=== PATIENT | female | born 1960 | race Caucasian/White ===

== ENCOUNTER → 2019-01-01 14:29 | Outpatient (CLI) | payer OTHER, SELFPAY ==
[2019-01-01 10:13] VITALS: BMI 20.7
== END ==
PROVIDERS: Referring Provider Physician Assistant; Visit Provider Physician Assistant
DX: J02.9 Acute pharyngitis, unspecified (principal)
CPT/HCPCS: 87081

== ENCOUNTER 2019-12-21 15:12 | Emergency (ER) | payer OTHER, SELFPAY ==
[2019-01-01 10:13] VITALS: BMI 20.7
[2019-12-21 15:14] VITALS: BP 161/96; PULSE 88; RESP 15; TEMP 36.8; O2SAT 95; BMI 21.6
--- NOTE | 2019-12-21 16:39 | ED.VISSUMM ---
- ER Visit Summary Date of Service: 12/21/19 Chief Complaint: Throat swelling History of Present Illness: The patient is a 59 F presenting with sensation of throat swelling. She states this started a couple of hours ago. She had new dentures placed this morning at her dentist. She wore them for approximately 6 hours and started have a sensation of swelling in her throat and tongue. No difficulty swallowing or breathing. She called her dentist and was advised to remove the dentures and come to the ED. Patient denies any itching, rash, other symptoms. Physical Examination: Vitals are stable. Patient is afebrile. Alert no acute distress. HEENT exam is unremarkable. Pharynx is normal. No pharyngeal edema. No tongue swelling. Neck is supple. Lungs are clear and equal bilaterally. Heart is regular rate and rhythm. Abdomen is soft nontender nondistended. Extremities are unremarkable. Skin is warm and dry. No rash No focal neurologic deficit. Remainder of exam is unremarkable. Emergency Department Course and Treatment: She was given IV Solu-Medrol, Benadryl. She was given Pepcid. Patient was observed in the ED for several hours. On reevaluation her symptoms have completely resolved. She has no pharyngeal edema, no tongue swelling. She is advised to follow-up with her dentist. She is advised to discontinue use of her dentures. Advised return to the ED for worsening complaints. Disposition: Discharged home Impression: Allergic reaction This note was generated with [employer] dictation software. It may contain incorrect words, spelling, and punctuation that were not noted in review of the chart prior to signing ED Disposition - Plan for ED Patient: Instructions: ED General Allergic Reactions Referrals: Care Physician,No Primary [Primary Care Provider] -
[2019-12-21] MEDS: Famotidine 20 MG Tablet PO (16:53)
[2019-12-21] MEDS: MethylPREDNISolone 125 MG/2 ML Vial IV (16:54)
[2019-12-21] MEDS: DiphenhydrAMINE 50 MG/ML Syringe 25 MG IV (16:54)
--- NOTE | 2019-12-21 18:57 | ED.DEP ---
ED Disposition - Plan for ED Patient: Instructions: ED General Allergic Reactions Referrals: Care Physician,No Primary [Primary Care Provider] -
[2019-12-21 19:12] VITALS: BP 152/60; PULSE 78; RESP 16; O2SAT 98
== END 2019-12-21 19:13 | disposition home or self-care (01) ==
LOC: ED 16:40
PROVIDERS: Emergency Provider Emergency Medicine
DX: T78.40XA Allergy, unspecified, initial encounter (principal); Z72.0 Tobacco use
CPT/HCPCS: 96374; 96375; 99283; J7050; A4216

== ENCOUNTER 2020-10-15 13:50 | Emergency (ER) | payer OTHER, SELFPAY ==
[2020-10-15 13:51] VITALS: BP 170/101; PULSE 101; RESP 18; TEMP 36.8; O2SAT 98; BMI 20.5
--- NOTE | 2020-10-15 13:58 | RAD_ITS ---
STUDY: X-RAY - RIGHT FOOT CLINICAL: Female, 60 years old. Pain and swelling of the dorsal foot TECHNIQUE: 3 view(s) of the foot. COMPARISON: None. FINDINGS: Normal talus, calcaneus, and tarsal bones. Normal visualized subtalar, talonavicular, calcaneocuboid, tarsal and tarsometatarsal articulations. Normal metatarsi. There is degenerative arthrosis of the metatarsophalangeal joint of the hallux . Normal tibial and fibular sesamoid bones. Normal interphalangeal joint of the great toe. Normal phalanges of the great toe. Normal second through fifth metatarsophalangeal joints. Normal interphalangeal joints and phalanges of the lesser toes. The soft tissue structures are unremarkable. RAD/Foot min 3 Views IMPRESSION: No fracture or malalignment. Electronically Signed: Aquiles Rich MD ([facility]) at 14:24 EST , Service support ,
--- NOTE | 2020-10-15 13:58 | ED.VIS.GEN ---
History of Present Illness Chief Complaint: Lower Extremity Injury Informant: Patient Narrative: 60-year-old female with no reported past medical history presenting with right foot pain. She states is on the dorsal surface of the right foot at the base of the first great toe. She states this is where she struck her foot last night while walking. She states she walked into the staircase. She is ambulatory on scene and in the ED. She does have antalgic gait. She has no numbness or tingling. No significant swelling or deformity. Past Medical History - Allergies and Home Meds Allergies/Adverse Reactions: Allergies bee venom protein (honey bee) Allergy (Verified 10/15/20 13:54) Unknown Penicillins Allergy (Verified 10/15/20 13:54) Unknown Primary Care Physician: Care Physician,No Primary [Primary Care Provider] - Past Medical History: - - Patient denies medical problems. Surgical History: noncontributory Lives: Spouse/ Significant Other Smoking Status: Current every day smoker Alcohol: None Drugs: None Review of Systems General: Denies: Chills, Fever, Sweats Eyes: Denies: Visual changes - bilaterally, Diplopia ENT: Denies: Rhinorrhea, Sore throat Cardiovascular: Denies: Chest pain, Palpitations Respiratory: Denies: Dyspnea, Cough, Dyspnea on exertion Gastrointestinal: Denies: Abdominal pain, Nausea, Vomiting, Diarrhea, Melena, Hematochezia Genitourinary: Denies: Dysuria, Hematuria, Frequency Musculoskeletal: Reports: Extremity Pain - Pain to right foot at base of great toe. Denies: Neck pain, Back pain Skin: Denies: Rash, Abscess Neurological: Denies: Headache, Weakness Psych: Denies: Depression, Anxiety Physical Exam Vital Signs/Narrative: Vital Signs Temp Pulse Resp BP Pulse Ox 10/15/20 13:51 98.2 F 101 H 18 170/101 H 98 Inital Vital Signs reviewed: Yes General: Well nourished, No Acute Distress Head: Normocephalic, Atraumatic Eyes: Perrl, EOMI ENT: Moist mucous membranes, No rhinorrhea Cardiovascular: Regular rate, Regular rhythm Respiratory: No distress, CTA bilaterally Extremities: - - Tenderness to palpation at the base of the right great toe and to some degree the second toe. There is no obvious deformity. Right foot is neurovascular intact brisk cap refill to all 5 toes.. Negative for: Calf Tenderness Skin: Normal color, No rash Neurological: Alert, Oriented x3 Psychological: Normal affect, Normal Mood Diagnostic/Tx/Re-eval - Medical Decision Making 10-year-old female presenting with right foot pain. On examination there is no deformity ENT is neurovascular intact. Patient had x-ray 3 views of the right foot which showed no acute fracture or subluxation as interpreted by myself. Patient was given oxycodone in the ED. Given that she has no fracture I do not believe she needs opioids for home. I will start her on Naprosyn. She is instructed on icing and elevation. She states he already has crutches. Patient stable for discharge at this time. Impression: 1. Right foot contusion ED Disposition - Plan for ED Patient: Disposition: Home or Assisted Living Instructions: ED Contusion, Lower Extremity Prescriptions: Naproxen [Naprosyn] 500 mg PO BID PRN #20 tab Prescription Printed Referrals: Care Physician,No Primary [Primary Care Provider] - Will Reyez MD [NON-STAFF] -
[2020-10-15] MEDS: oxyCODONE 5 MG Tablet PO (14:02)
[2020-10-15 14:54] VITALS: RESP 16
== END 2020-10-15 15:10 | disposition home or self-care (01) ==
PROVIDERS: Emergency Provider Student in an Organized Health Care Education/Training Program
DX: S90.31XA Contusion of right foot, initial encounter (principal); F17.200 Nicotine dependence, unspecified, uncomplicated; W22.09XA Striking against other stationary object, initial encounter; Y93.01 Activity, walking, marching and hiking; Y92.009 Unspecified place in unspecified non-institutional (private) residence as the place of occurrence of the external cause; Y99.8 Other external cause status
CPT/HCPCS: 73630; 99282

== ENCOUNTER → 2022-01-05 | Outpatient (CLI) | payer MEDICAID, SELFPAY ==
[2022-01-05 15:55] LABS: Absolute Lymphocyte Count 2.03 X10^3/uL (0.83-4.51); Absolute Neutrophil Count 6.4 X10^3/uL (2.0-7.7); Basophil# 0.04 X10^3/uL; Basophil% 0.4 % (0-1); Eosinophil# 0.13 X10^3/uL; Eosinophils% 1.4 % (0-5); Hematocrit 41.8 % (37-47); Hemoglobin 14.4 g/dL (12.0-15.0); Lymphocyte # 2.03 X10^3/ul (0.83-4.51); Lymphocyte % 21.5 % (19-41); Mean Corp Hgb Conc 34.4 g/dL (32-36); Mean Corpuscular Hgb 32.1 pg (27.0-32.0); Mean Corpuscular Volume 93.1 fL (81-99); Mean Platelet Vol. 9.8 fl (6.2-12.0); Monocyte# 0.82 X10^3/uL; Monocyte% 8.7 % (0-10); NRBC Flagged by Analyzer 0 % (0-5); Neutrophil # 6.38 X10^3/uL (2.7-7.7); Neutrophil % 67.5 % (47-70); Platelet Count 302 K/mm3 (150-450); RBC Distribution Width CV 14.4 % (11.6-14.6); RBC Distribution Width SD 49.2 fl (35.1-43.9); Red Blood Count 4.49 M/mm3 (4.2-5.4); White Blood Count 9.5 K/mm3 (4.4-11.0)
[2022-01-05 16:15] LABS: AST(SGOT) 17 U/L (15-37); Alanine Aminotransfer ALT/SGPT 30 U/L (13-56); Albumin, Serum 4.1 g/dL (3.2-5.0); Alkaline Phosphatase 90 U/L (45-117); Anion Gap 6 (5-15); BUN 14 mg/dL (7-18); BUN/Creat Ratio 16.7 RATIO (10-20); Calcium,Total 9.2 mg/dL (8.5-10.1); Chloride 104 mmol/L (98-107); Cholesterol 220 mg/dL (200); Creatinine, Serum 0.84 mg/dL (0.55-1.02); EST Glomerular Filtration Rate 74 mL/min (>60); Est Glom Filt Rate - Afr Amer 89 mL/min (>60); Globulin 4.1 g/dL (2.2-4.2); Glucose 110 mg/dL (74-106); High Density Lipoprotein 84 mg/dL; Potassium 3.9 mmol/L (3.5-5.1); Protein, Total 8.2 g/dL (6.4-8.2); Sodium Level 137 mmol/L (136-145); Triglycerides 95 mg/dL; Very Low Density Lipoprotein 19 mg/dL (5-40)
== END | disposition home or self-care (01) ==
LOC: BIMLAB 14:09
PROVIDERS: Referring Provider Internal Medicine; Visit Provider Internal Medicine
DX: I10 Essential (primary) hypertension (principal)
CPT/HCPCS: 36415; 80053; 80061; 85025

== ENCOUNTER → 2022-01-22 | Outpatient (CLI) | payer MEDICAID, SELFPAY ==
--- NOTE | 2022-01-22 08:54 | BI_ITS ---
MAMMOGRAPHY - BILATERAL DIAGNOSTIC REASON FOR EXAM: Female, 61 years old. PAIN PERTINENT HISTORY: Non-contributory. TECHNIQUE: Digital examination. Mediolateral oblique (MLO) and craniocaudad (CC) views of both breasts were obtained. CAD: CAD was performed on this study. COMPARISON: None. FINDINGS: Breast Composition: There are scattered areas of fibroglandular density. There are no dominant masses or suspicious calcifications. No other significant abnormalities are identified. BI/DIAG MAMM W/CAD, BILAT IMPRESSION: Stable bilateral diagnostic mammogram. ASSESSMENT CATEGORY: BIRADS Category 1: Negative. A letter regarding these results will be sent to the patient by the facility within 30 days. FOLLOW UP RECOMMENDATION: Yearly follow up mammogram recommended. (A) Approximately 10% of breast cancers are not detected by mammography. A normal mammogram should not delay biopsy of a clinically suspicious abnormality. Electronically Signed: Joshua Almonte MD at 9:35 EDT ,
== END | disposition home or self-care (01) ==
PROVIDERS: PCP Internal Medicine; Visit Provider Internal Medicine
DX: R92.2 Inconclusive mammogram (principal)
CPT/HCPCS: 77062; 77066; G0279

== ENCOUNTER → 2023-01-21 | Outpatient (CLI) | payer MEDICAID, SELFPAY ==
[2023-01-21 15:14] LABS: Absolute Lymphocyte Count 1.73 X10^3/uL (0.83-4.51); Absolute Neutrophil Count 5.9 X10^3/uL (2.0-7.7); Basophil# 0.02 X10^3/uL; Basophil% 0.2 % (0-1); Eosinophil# 0.12 X10^3/uL; Eosinophils% 1.4 % (0-5); Hematocrit 39.8 % (37-47); Lymphocyte # 1.73 X10^3/ul (0.83-4.51); Lymphocyte % 20.2 % (19-41); Mean Corp Hgb Conc 32.7 g/dL (32-36); Mean Corpuscular Hgb 31.2 pg (27.0-32.0); Mean Corpuscular Volume 95.4 fL (81-99); Mean Platelet Vol. 9.5 fl (6.2-12.0); Monocyte# 0.81 X10^3/uL; Monocyte% 9.5 % (0-10); NRBC Flagged by Analyzer 0 % (0-5); Neutrophil # 5.86 X10^3/uL (2.7-7.7); Neutrophil % 68.3 % (47-70); Platelet Count 327 K/mm3 (150-450); RBC Distribution Width CV 13.2 % (11.6-14.6); RBC Distribution Width SD 47.5 fl (35.1-43.9); Red Blood Count 4.17 M/mm3 (4.2-5.4); White Blood Count 8.6 K/mm3 (4.4-11.0)
[2023-01-21 15:34] LABS: AST(SGOT) 20 U/L (15-37); Alanine Aminotransfer ALT/SGPT 25 U/L (13-56); Albumin, Serum 4.1 g/dL (3.2-5.0); Alkaline Phosphatase 90 U/L (45-117); Anion Gap 7 (5-15); BUN 14 mg/dL (7-18); BUN/Creat Ratio 16.1 RATIO (10-20); Calcium,Total 9.4 mg/dL (8.5-10.1); Chloride 102 mmol/L (98-107); Cholesterol 227 mg/dL (200); Creatinine, Serum 0.87 mg/dL (0.55-1.02); EST Glomerular Filtration Rate 70 mL/min (>60); Est Glom Filt Rate - Afr Amer 85 mL/min (>60); Globulin 4.2 g/dL (2.2-4.2); Glucose 121 mg/dL (74-106); High Density Lipoprotein 87 mg/dL; Potassium 3.9 mmol/L (3.5-5.1); Protein, Total 8.3 g/dL (6.4-8.2); Sodium Level 135 mmol/L (136-145); Triglycerides 141 mg/dL; Very Low Density Lipoprotein 28 mg/dL (5-40)
== END | disposition home or self-care (01) ==
LOC: BIMLAB 13:48
PROVIDERS: PCP Internal Medicine; Referring Provider Internal Medicine; Visit Provider Internal Medicine
DX: I10 Essential (primary) hypertension (principal)
CPT/HCPCS: 36415; 80053; 80061; 85025

== ENCOUNTER → 2023-02-18 | Outpatient (CLI) | payer MEDICAID, SELFPAY ==
--- NOTE | 2023-02-18 09:52 | BI_ITS ---
MAMMOGRAPHY - BILATERAL SCREENING 3-D TOMOSYNTHESIS REASON FOR EXAM: Female, 62 years old. Routine screening PERTINENT HISTORY: No significant family history. TECHNIQUE: 2-D mammograms and 3-D Tomosynthesis of the breast (s) were performed. CAD was performed. COMPARISON: 01/22/2022 FINDINGS: The breast composition is composed of scattered fibroglandular density. Scattered benign calcifications are seen. No dense spiculated masses or suspicious microcalcifications are identified. No architectural distortion is identified. There is no skin thickening or retraction. There has been no significant change since the prior study. BI/SCRN MAMM (CAD)W/SEMAJ BILAT IMPRESSION: No mammographic signs of malignancy. Routine yearly mammograms recommended. ASSESSMENT CATEGORY: BIRADS Category 1: Negative. A letter regarding these results will be sent to the patient by the facility within 30 days. FOLLOW UP RECOMMENDATION: Yearly follow up mammogram recommended. (A) Approximately 10% of breast cancers are not detected by mammography. A normal mammogram should not delay biopsy of a clinically suspicious abnormality. Electronically Signed: Dm Camacho MD at 10:42 EDT ,
== END | disposition home or self-care (01) ==
LOC: OPBI 09:52
PROVIDERS: PCP Internal Medicine; Referring Provider Internal Medicine; Visit Provider Internal Medicine
DX: Z12.31 Encounter for screening mammogram for malignant neoplasm of breast (principal)
CPT/HCPCS: 77063; 77067

== ENCOUNTER → 2023-03-19 | Outpatient (CLI) | payer MEDICAID, SELFPAY ==
--- NOTE | 2023-03-19 12:25 | BD_ITS ---
STUDY: DUAL ENERGY X-RAY ABSORPTIOMETRY / DXA REASON FOR EXAM: Female, 62 years old. Post menopausal TECHNIQUE: Bone Mineral Density (BMD) measurements of lumbar spine and bilateral hips were obtained. COMPARISON: None. FINDINGS: Lumbar Spine (L1-L4): g/cm2 (1.183) / T-score (1.2) / Z-score (2.8) Findings are suggestive of normal bone density with a low fracture risk. Left Femur Total: g/cm2 (0.771) / T-score (-1.4) / Z-score (-0.4) Left Femoral Neck: g/cm2 (0.677) / T-score (-1.5) / Z-score (-0.2) Right Femur Total: g/cm2 (0.832) / T-score (-0.9) / Z-score (0.1) Right Femoral Neck: g/cm2 (0.746) / T-score (-0.9) / Z-score (0.4) BD/Dexa Bone Density Study IMPRESSION: The patient is considered osteopenic as outlined below according to World [employer] Organization (WHO) criteria with a low fracture risk. Reference Information: The T-score is the number of standard deviations above or below the standard which is normal for young adults at their peak bone mineral density. The World Health Organization (WHO) interprets the T-scores as follows: Above -1 Normal bone density Between -1 and -2.5 Osteopenia Equal to / or below -2.5 Osteoporosis As a practical clinical guideline, osteopenia may be graded as follows: Mild -1 through -1.5 Moderate -1.6 through -2.0 Severe -2.1 through -2.4 The Z-score is the number of standard deviations above or below age-matched controls. A Z-score of less than -1.5 would be considered abnormal. References: 1. NIH Osteoporosis and Related Bone Diseases www osteo.org 2. International Society for Clinical Densitometry www iscd.org 3. National Osteoporosis Foundation www nof.org Electronically Signed: Joshua Dailey MD at 11:15 EDT ,
== END | disposition home or self-care (01) ==
LOC: OPBD 12:14
PROVIDERS: PCP Internal Medicine; Referring Provider Internal Medicine; Visit Provider Internal Medicine
DX: Z78.0 Asymptomatic menopausal state (principal)
CPT/HCPCS: 77080

== ENCOUNTER → 2024-02-10 | Outpatient (CLI) | payer OTHER, SELFPAY ==
[2024-02-10 16:35] LABS: Absolute Lymphocyte Count 2.14 X10^3/uL (0.83-4.51); Absolute Neutrophil Count 5.1 X10^3/uL (2.0-7.7); Basophil# 0.02 X10^3/uL; Basophil% 0.2 % (0-1); Eosinophil# 0.18 X10^3/uL; Eosinophils% 2.2 % (0-5); Hematocrit 40.6 % (37-47); Hemoglobin 13.3 g/dL (12.0-15.0); Lymphocyte # 2.14 X10^3/ul (0.83-4.51); Lymphocyte % 25.7 % (19-41); Mean Corp Hgb Conc 32.8 g/dL (32-36); Mean Corpuscular Hgb 30.6 pg (27.0-32.0); Mean Corpuscular Volume 93.5 fL (81-99); Mean Platelet Vol. 9.8 fl (6.2-12.0); Monocyte# 0.89 X10^3/uL; Monocyte% 10.7 % (0-10); NRBC Flagged by Analyzer 0 % (0-5); Neutrophil # 5.07 X10^3/uL (2.7-7.7); Platelet Count 296 K/mm3 (150-450); RBC Distribution Width CV 13.9 % (11.6-14.6); RBC Distribution Width SD 47.9 fl (35.1-43.9); Red Blood Count 4.34 M/mm3 (4.2-5.4); White Blood Count 8.3 K/mm3 (4.4-11.0)
[2024-02-10 16:54] LABS: ALB/GLOB Ratio 0.9 RATIO (0.9-2.4); AST(SGOT) 21 U/L (15-37); Alanine Aminotransfer ALT/SGPT 22 U/L (13-56); Albumin, Serum 4.1 g/dL (3.2-5.0); Alkaline Phosphatase 89 U/L (45-117); Anion Gap 8 (5-15); BUN 15 mg/dL (7-18); BUN/Creat Ratio 17.1 RATIO (10-20); Calcium,Total 9.5 mg/dL (8.5-10.1); Chloride 101 mmol/L (98-107); Cholesterol 207 mg/dL (200); Creatinine, Serum 0.88 mg/dL (0.55-1.02); EST Glomerular Filtration Rate 69 mL/min (>60); Est Glom Filt Rate - Afr Amer 84 mL/min (>60); Globulin 4.5 g/dL (2.2-4.2); Glucose 129 mg/dL (74-106); High Density Lipoprotein 90 mg/dL; Protein, Total 8.6 g/dL (6.4-8.2); Sodium Level 135 mmol/L (136-145); Triglycerides 102 mg/dL; Very Low Density Lipoprotein 20 mg/dL (5-40)
== END | disposition home or self-care (01) ==
LOC: BIMLAB 14:49
PROVIDERS: PCP Internal Medicine; Referring Provider Internal Medicine; Visit Provider Internal Medicine
DX: I10 Essential (primary) hypertension (principal)
CPT/HCPCS: 36415; 80053; 80061; 85025

== ENCOUNTER → 2024-03-02 | Outpatient (CLI) | payer OTHER, SELFPAY ==
--- NOTE | 2024-03-02 09:27 | BI_ITS ---
MAMMOGRAPHY - BILATERAL SCREENING REASON FOR EXAM: Female, 63 years old. Routine annual screening examination. PERTINENT HISTORY: Non-contributory. TECHNIQUE: Digital bilateral breast semaj (3D mammographic acquisition) in the CC and MLO projections. 2-D mediolateral oblique (MLO) and craniocaudad (CC) views of both breasts were obtained. CAD: Full Field Digital Mammography with Computer Added Detection was performed. COMPARISON: Comparison is made with prior study dated February 18, 2023 and January 22, 2022. FINDINGS: Breast Composition: There are scattered areas of fibroglandular density. There are no dominant masses or suspicious calcifications. No other significant abnormalities are identified. There has been no significant change since the prior study. BI/SCRN MAMM (CAD)W/SEMAJ BILAT IMPRESSION: Stable bilateral screening mammogram. Yearly follow-up mammogram recommended. (A) ASSESSMENT CATEGORY: BIRADS Category 1: Negative. A letter regarding these results will be sent to the patient by the facility within 30 days. Approximately 10% of breast cancers are not detected by mammography. A normal mammogram should not delay biopsy of a clinically suspicious abnormality. [id number] Electronically Signed: Joshua Dailye MD at 10:56 EDT ,
== END | disposition home or self-care (01) ==
LOC: OPBI 09:27
PROVIDERS: PCP Internal Medicine; Referring Provider Internal Medicine; Visit Provider Internal Medicine
DX: Z12.31 Encounter for screening mammogram for malignant neoplasm of breast (principal)
CPT/HCPCS: 77063; 77067

== ENCOUNTER → 2025-02-10 | Outpatient (CLI) | payer OTHER, SELFPAY ==
[2025-02-10 12:47] LABS: Hematocrit 42.0 % (37-47); Hemoglobin 13.9 g/dL (12.0-15.0); Immature Granulocytes Count 0.050 X10^3/uL (0.0-0.0); Mean Corp Hgb Conc 33.1 g/dL (32-36); Mean Corpuscular Volume 93.3 fL (81-99); Mean Platelet Vol. 9.8 fl (6.2-12.0); NRBC Flagged by Analyzer 0 % (0-5); Platelet Count 298 K/mm3 (150-450); RBC Distribution Width CV 14.5 % (11.6-14.6); RBC Distribution Width SD 50.0 fl (35.1-43.9); Red Blood Count 4.50 M/mm3 (4.2-5.4); White Blood Count 10.9 K/mm3 (4.4-11.0)
[2025-02-10 13:44] LABS: AST(SGOT) 23 U/L (<=31); Alanine Aminotransfer ALT/SGPT 17 U/L (<=34); Albumin, Serum 4.6 g/dL (3.4-4.8); Alkaline Phosphatase 82 U/L (35-104); Anion Gap 13 (5-15); BUN 15 mg/dL (4-19); BUN/Creat Ratio 19.4 RATIO (10-20); Calcium,Total 9.8 mg/dL (7.6-11.0); Carbon Dioxide 24.3 mmol/L (21.0-32.0); Chloride 100 mmol/L (98-108); Cholesterol 216 mg/dL (<=200); Globulin 3.4 g/dL (2.2-4.2); Glucose 99 mg/dL (70-99); Low Density Lipoprotein Calc. 118 mg/dL; Potassium 4.4 mmol/L (3.3-5.1); Triglycerides 54 mg/dL; Very Low Density Lipoprotein 11 mg/dL (5-40); Vitamin D,25 Hydroxy 48.6 ng/mL (30-100); cholesterol:hdl ratio screen 2.47
== END | disposition home or self-care (01) ==
LOC: BIMLAB 08:56
PROVIDERS: PCP Internal Medicine; Referring Provider Internal Medicine; Visit Provider Internal Medicine
DX: I10 Essential (primary) hypertension (principal); M85.80 Other specified disorders of bone density and structure, unspecified site
CPT/HCPCS: 36415; 80053; 80061; 82306; 85025

== ENCOUNTER → 2025-03-03 | Outpatient (CLI) | payer OTHER, SELFPAY ==
--- NOTE | 2025-03-03 13:30 | BI_ITS ---
EXAM: SCRN MAMM (CAD)W/SEMAJ BILAT DATE: 03/03/2025 CLINICAL HISTORY: F, Age 64 y/o , BREAST CANCER SCREENING TECHNIQUE: SCRN MAMM (CAD)W/SEMAJ BILAT COMPARISON: Prior exam(s) dated 03/02/2024, 02/18/2023, 01/22/2022. FINDINGS: TISSUE DENSITY: There are scattered areas of fibroglandular density. Bilateral Breast Mammographic Findings: No significant masses, calcifications or other abnormalities are identified. BI/SCRN MAMM (CAD)W/SEMAJ BILAT IMPRESSION: There is no mammographic evidence of malignancy. OVERALL FINAL ASSESSMENT BI-RADS 1: NEGATIVE. RECOMMENDATION: Routine annual follow-up in 1 Year A letter with findings and recommendations will be mailed to the patient. Reading Location: [id number]
== END | disposition home or self-care (01) ==
LOC: OPBI 13:12
PROVIDERS: PCP Internal Medicine; Referring Provider Internal Medicine; Visit Provider Internal Medicine
DX: Z12.31 Encounter for screening mammogram for malignant neoplasm of breast (principal)
CPT/HCPCS: 77063; 77067

== ENCOUNTER → 2025-03-24 | Outpatient (CLI) | payer OTHER, SELFPAY ==
--- NOTE | 2025-03-24 13:03 | BD_ITS ---
PROCEDURE: DEXA BONE DENSITY STUDY 03/24/2025 REASON FOR EXAM: POST MENOPAUSAL F, age 64 y/o . Postmenopausal. TECHNIQUE: DEXA BONE DENSITY STUDY COMPARISON: Prior study dated March 19, 2023. FINDINGS: BMD and T-SCORES Lumbar spine: 1.126 g/cm2, T-score 1.3 Levels: L1 through L4 Change from prior: Improvement of 3.7%. Left femoral neck: 0.666 g/cm2, T-score -1.7 Femoral neck comparison data not recommended for monitoring change. Left total hip: 0.771 g/cm2, T-score -1.4 Change from prior: Stable examination.. Right femoral neck: 0.785 g/cm2, T-score -0.6 Femoral neck comparison data not recommended for monitoring change. Right total hip: 0.858 g/cm2, T-score -0.7 Change from prior: Improvement of 3.2%. The World Health Organization has defined the following categories based on bone density: Normal bone density: T-score equal to or greater than -1.0 Osteopenia: T-score between -1.0 and -2.5 Osteoporosis: T-score equal to or less than -2.5 FRAX (or Comparable) Fracture Risk Assessment: 10 Year Probability of Fracture: Major Osteoporotic Fracture: 8.2% Hip Fracture: 0.9% (Note: FRAX is not to be reported in setting of normal range bone density, osteoporosis on DEXA, known history of osteoporosis, prior osteoporotic hip or vertebral fracture, or for any patient undergoing pharmacological treatment for bone loss.) The National Osteoporosis Foundation (NOF) recommends pharmacological treatment for patients with a FRAX 10-year risk of 3% or higher for a hip fracture, or 20% or higher for a major osteoporotic fracture, to prevent osteoporosis and reduce fracture risk. The patient does meet the pharmacological treatment recommendations for prevention of osteoporosis. BD/Dexa Bone Density Study IMPRESSION: OSTEOPENIA. Recommend follow-up as clinically warranted. Reading Location: [id number]
== END | disposition home or self-care (01) ==
LOC: OPBD 12:22
PROVIDERS: PCP Internal Medicine; Referring Provider Internal Medicine; Visit Provider Internal Medicine
DX: Z13.820 Encounter for screening for osteoporosis (principal); Z78.0 Asymptomatic menopausal state
CPT/HCPCS: 77080